=== PATIENT | male | born 1955 | race Caucasian/White ===

== ENCOUNTER 2022-03-24 13:09 | Inpatient (IN) | payer MEDICARE, OTHER ==
[~2022-03-24] VITALS: Ht 180.3 cm; Wt 169.6 kg
--- NOTE | 2022-03-24 13:57 | NUR ---
BIBCARETAKER C/O ROSSY LOWER LEG EDEMA, L>R, POSS DVT PER STAFF. THE PATIENT RATES PAIN 5/10. IN ROOM AIR AND DENIES SOB. RESPIRATION REGULAR AND UNLABORED. THE PATIENT IS ATTACHED TO THE MONITOR. WILL CONTINUE TO MONITOR THE PATIENT.
[2022-03-24] MEDS ORDERED: BENA40TA8 PO (14:15)
[2022-03-24] MEDS ORDERED: ONDA4TAB11 SL (14:15)
[2022-03-24] MEDS ORDERED: FURO-144 PO (14:15)
[2022-03-24] MEDS ORDERED: OMEP20CA15 PO (14:15)
[2022-03-24] MEDS ORDERED: ZOLP5TAB8 PO (14:15)
[2022-03-24] MEDS ORDERED: ACET650S11 RC (14:15)
[2022-03-24] MEDS ORDERED: MORP100S3 SL (14:15)
[2022-03-24] MEDS ORDERED: ATOR10TA PO (14:15)
[2022-03-24] MEDS ORDERED: BISA10SU11 RC (14:15)
[2022-03-24] MEDS ORDERED: QUET25TA PO (14:15)
[2022-03-24] MEDS ORDERED: POTA8TAB3 PO (14:15)
[2022-03-24] MEDS ORDERED: GABA-532 PO (14:15)
[2022-03-24] MEDS ORDERED: ATRO2DRO4 SL (14:15)
[2022-03-24] MEDS ORDERED: AMLO-212 PO (14:15)
[2022-03-24] MEDS ORDERED: METO5TAB7 PO (14:15)
[2022-03-24] MEDS ORDERED: BUME2TAB7 PO (14:15)
[2022-03-24] MEDS ORDERED: ASPI-1169 PO (14:15)
[2022-03-24] MEDS ORDERED: DOCU-141 PO (14:15)
[2022-03-24] MEDS ORDERED: BUDE10.2 IH (14:15)
[2022-03-24] MEDS ORDERED: FERR325T23 PO (14:15)
[2022-03-24] MEDS ORDERED: ALBU2.5V38 IH (14:15)
[2022-03-24] MEDS ORDERED: ALBU18HF2 IH (14:15)
[2022-03-24] MEDS ORDERED: CALC500T52 PO (14:15)
[2022-03-24] MEDS ORDERED: LORA2ORA5 SL (14:15)
[2022-03-24] MEDS ORDERED: MELA5TAB PO (14:15)
[2022-03-24] MEDS ORDERED: LEVE500T20 PO (14:15)
[2022-03-24] MEDS ORDERED: CHOL100043 PO (14:15)
[2022-03-24] MEDS ORDERED: IPRA3AMP23 IH (14:15)
[2022-03-24] MEDS ORDERED: PRED20TA PO (14:15)
--- NOTE | 2022-03-24 14:30 | NUR ---
SEEN BY DR. FOX AT BEDSIDE. ATTACHED TO PULSE OXIMETER. O2 SAT 88-91% IN ROOM AIR, TARI. AT THIS TIME
[2022-03-24] MEDS ORDERED: BUMETANIDE INJ 0.25 MG/ML VIAL ONE (14:40)
--- NOTE | 2022-03-24 14:47 | NUR ---
RAPID COVID SWAB DONE AND SENT TO LAB
--- NOTE | 2022-03-24 14:50 | NUR ---
IV ESTABLISHED R HAND 20G. LABS DRAWN AND COLLECTED AT BEDSIDE.
[2022-03-24] MEDS ORDERED: BUMETANIDE INJ 4 MG in IV NS 0.9% 50 ML IV ONE (15:00)
[2022-03-24] MEDS ORDERED: BUMETANIDE INJ 0.25 MG/ML VIAL IV ONE (15:00)
[2022-03-24 15:04] LABS: BASOPHILS % (AUTO) 0.5 % (0.0-2.0); EOSINOPHILS % (AUTO) 4.5 % (0.0-6.0); HEMATOCRIT 34 % (39-51); LYMPHOCYTES # (AUTO) 0.6 K/uL (0.8-4.8); LYMPHOCYTES % (AUTO) 6.9 % (20.0-44.0); MEAN CORPUSCULAR HGB CONC 32 g/dl (31.0-36.0); MEAN CORPUSCULAR VOLUME 94 fL (80-96); MONOCYTES # (AUTO) 0.5 K/uL (0.1-1.30); MONOCYTES % (AUTO) 6.5 % (2.0-12.0); NEUTROPHILS # (AUTO) 6.8 K/uL (1.8-8.9); NEUTROPHILS % (AUTO) 81.6 % (43.0-81.0); PLATELET COUNT (AUTO) 225 K/uL (150-450); RED BLOOD CELL COUNT(AUTO) 3.61 MIL/uL (4.5-6.0); WHITE BLOOD COUNT (AUTO) 8.3 K/uL (4.3-11.0)
--- NOTE | 2022-03-24 15:08 | NUR ---
DR. BAIRES CALLED AND NOTIFIED THAT HE WOULD LIKE TO ADMIT THE PT
[2022-03-24 15:17] LABS: CALCIUM, SERUM 8.8 mg/dL (8.5-10.1); CARBON DIOXIDE 31 mmol/L (21-32); CHLORIDE 102 mmol/L (98-107); GLUCOSE 177 mg/dL (74-106); POTASSIUM 5.3 mmol/L (3.5-5.1); SODIUM SERUM 138 mmol/L (136-145); UREA NITROGEN, BLOOD 53 mg/dL (7-18)
[2022-03-24 15:33] LABS: ALANINE AMINOTRANSFERASE 28 U/L (12-78); ALBUMIN 3.5 g/dL (3.4-5.0); ALKALINE PHOSPHATASE 71 U/L (46-116); ASPARTATE AMINOTRANSFERASE 17 U/L (15-37); BILIRUBIN,DIRECT 0.1 mg/dL (0.0-0.2); BILIRUBIN,TOTAL 0.3 mg/dL (0.2-1.0); TOTAL PROTEIN, SERUM 7.4 g/dL (6.4-8.2)
--- NOTE | 2022-03-24 17:11 | NUR ---
Angi chinchilla in [facility] - 03/24/22 at 1730 by LAQUIAT morenita cantu
--- NOTE | 2022-03-24 17:45 | NUR ---
PT PRESENTED TO DR. WORTHY
--- NOTE | 2022-03-24 19:41 | NUR ---
ROOM 325-2
--- NOTE | 2022-03-24 19:54 | NUR ---
REPORT GIVEN TO NURSE CARTER FOR VIC
[2022-03-24 20:00] VITALS: BP 82/61
--- NOTE | 2022-03-24 20:09 | NUR ---
TRANSFERRED TO [facility] FLOOR Addendum: 03/24/22 at 2050 by THO UNDER ACLS
[2022-03-24] MEDS ORDERED: ACETAMINOPHEN 325 MG TABLET PO PRN (21:00)
[2022-03-24] MEDS ORDERED: BISACODYL SUPP (10 MG) 10 MG/SUPP.RECT SUPP.RECT RC PRN (21:30)
[2022-03-24] MEDS ORDERED: ACETAMINOPHEN 650 MG/SUPP.RECT RC PRN (21:30)
[2022-03-24] MEDS ORDERED: Medication Not On Formulary EA (Ipratropium/Albuterol Sulfate (Duoneb 2.5-0.5 Mg/3 Ml So IH PRN (21:30)
[2022-03-24] MEDS ORDERED: ALBUTEROL SULFATE 8 GM HFA.AER.AD IH PRN (21:30)
[2022-03-24] MEDS ORDERED: ONDANSETRON HCL/PF 4 MG/2 ML VIAL IV PRN (22:00)
[2022-03-24] MEDS ORDERED: IPRATROPIUM NEB FS 0.5 MG/2.5 ML AMPUL.NEB IH PRN (22:00)
[2022-03-24] MEDS ORDERED: ALBUTEROL FS 2.5 MG/0.5 ML VIAL.NEB NEB PRN (22:00)
[2022-03-24] MEDS: MELATONIN 3 MG TABLET PO SCH ×2 (22:00→22:25)
--- NOTE | 2022-03-24 22:00 | NUR ---
MS RN NOTES PT A/OX4 ABLE TO MAKE NEEDS KNOW. IN NO PAIN AT THIS TIME. PT HAS IV ACCESS ON THE RIGHT HAND 20 G S/L .PT NOTED WITH VARIOUS WOUNDS BLE EDEMA AND REDNESS NOTED WITH WEEPING ON THE RIGHT LEG. PER PT HE HAS A HX OF BLE CELLULITIS AND HAD BEEN RECEIVING TREATMENT FOR IT. PT NOTED WITH PITTING EDEMA +2 ON BILATERAL LEGS. PT ALSO HAS DISCOLORATION OB BILATERAL ARMS WITH A RIGHT ELBOW SKIN TEAR. SCROTAL REDNESS ALSO NOTED. PER PT AT HIS ASSISTED LIVING HE AMBULATED VIA WHEEL CHAIR WITH THE HELP OF A TRAPEZE BAR TO GET UP. WHEN HAVING PT TURN TO CHECK HIS BACK FOR WOUNDS NOTED PT WAS HAVING SOME SOB WITH EXERTION PLACED PT ON 2L OF 02 VIA NASAL CANNULA.TOLERATING WELL. PT ORIENTED TO ROOM A ND UNIT BILATERAL SIDE RAILS UP.CALL LIGHT WITHIN REACH TABLE WITHIN REACH. ALL NEEDS META THIS ITME. WILL CONTINUE TO MONITOR
[2022-03-24] MEDS: ATORVASTATIN 10 MG TABLET PO SCH (22:24)
[2022-03-24 23:34] VITALS: BP 86/58
[2022-03-25] MEDS: HYDROCODONE/APAP 5/325MG TABLET PO PRN ×2 (00:57→08:09)
[2022-03-25] MEDS: ALBUTEROL FS 2.5 MG/0.5 ML VIAL.NEB NEB SCH ×4 (01:59→20:16)
[2022-03-25 06:42] LABS: BASOPHILS % (AUTO) 0.6 % (0.0-2.0); EOSINOPHILS % (AUTO) 5.7 % (0.0-6.0); HEMATOCRIT 32 % (39-51); HEMOGLOBIN 10.6 g/dL (13.5-17.5); LYMPHOCYTES # (AUTO) 0.9 K/uL (0.8-4.8); LYMPHOCYTES % (AUTO) 14.1 % (20.0-44.0); MEAN CORPUSCULAR HGB CONC 34 g/dl (31.0-36.0); MEAN CORPUSCULAR VOLUME 92 fL (80-96); MONOCYTES # (AUTO) 0.6 K/uL (0.1-1.30); MONOCYTES % (AUTO) 10.1 % (2.0-12.0); NEUTROPHILS # (AUTO) 4.3 K/uL (1.8-8.9); NEUTROPHILS % (AUTO) 69.5 % (43.0-81.0); PLATELET COUNT (AUTO) 205 K/uL (150-450); RED BLOOD CELL COUNT(AUTO) 3.42 MIL/uL (4.5-6.0); WHITE BLOOD COUNT (AUTO) 6.2 K/uL (4.3-11.0)
--- NOTE | 2022-03-25 06:52 | NUR ---
MS RN NOTES PT A/OX4 ABLE TO MAKE NEEDS KNOW. IN NO PAIN AT THIS TIME. PT HAS IV ACCESS ON THE RIGHT HAND 20 G S/L .PT NOTED WITH VARIOUS WOUNDS BLE EDEMA AND REDNESS NOTED WITH WEEPING ON THE RIGHT LEG. PT ON 2L OF 02 VIA NASAL CANNULA.TOLERATING WELL. BILATERAL SIDE RAILS UP.CALL LIGHT WITHIN REACH TABLE WITHIN REACH. ALL NEEDS MET AT THIS TIME. WILL ENDORSE CARE TO DAY SHIFT NURSE FOR VIC
[2022-03-25 06:53] LABS: ALBUMIN 3.3 g/dL (3.4-5.0); BILIRUBIN,TOTAL 0.3 mg/dL (0.2-1.0); CALCIUM, SERUM 8.8 mg/dL (8.5-10.1); CREATININE 1.8 mg/dL (0.6-1.3); POTASSIUM 4.5 mmol/L (3.5-5.1)
[2022-03-25 07:19] LABS: THYROID STIMULATING HORMONE 2.144 uIU/mL (0.358-3.74)
--- NOTE | 2022-03-25 07:30 | NUR ---
RN NOTE PT RECEIVED IN BED. PT IS ON 2L OF O2 VIA NC SHOWING NO S/SX OF RESP DISTRESS. PT IS A/OX4 ABLE TO VERBALIZE NEEDS. BLE CELLULITIS NOTED. IV ACCESS NOTED ON RIGHT HAND #20, LINE FLUSHED, PATENT, AND INTACT WITH NO SIGNS OF INFILTRATION. ALL SAFETY MEASURES IMPLEMENTED. WILL CONTINUE TO MONITOR THROUGHOUT SHIFT.
[2022-03-25 08:00] VITALS: BP 114/50
[2022-03-25] MEDS: CHOLECALCIFEROL 1,000 UNIT TABLET (VIT D3) PO SCH (08:08)
[2022-03-25] MEDS: predniSONE 20 MG TABLET PO SCH (08:08)
[2022-03-25] MEDS: PANTOPRAZOLE 40 MG TABLET.DR PO SCH (08:08)
[2022-03-25] MEDS: GABAPENTIN 300 MG CAPSULE PO SCH ×3 (08:08→16:36)
[2022-03-25] MEDS: QUETIAPINE FUMARATE 25 MG TABLET PO SCH ×2 (08:08→16:36)
[2022-03-25] MEDS: DOCUSATE SODIUM 100 MG CAPSULE PO SCH ×2 (08:08→16:36)
[2022-03-25] MEDS: CALCIUM CARBONATE (1250) 500 MG TABLET PO SCH ×2 (08:08→16:36)
[2022-03-25] MEDS: ASPIRIN 81 MG TAB.CHEW PO SCH (08:09)
[2022-03-25] MEDS: BUMETANIDE INJ 0.25 MG/ML VIAL IV SCH ×2 (08:09→21:12)
[2022-03-25] MEDS: LEVETIRACETAM (250 MG) 250 MG TABLET PO SCH (08:10)
[2022-03-25] MEDS: BUDESONIDE RESPULE INH 0.5 MG/2 ML AMPUL.NEB NEB SCH ×2 (08:20→14:19)
[2022-03-25] MEDS ORDERED: CEFTRIAXONE 1 G in IV D5W 50 ML IV SCH (09:00)
[2022-03-25] MEDS ORDERED: Medication Not On Formulary EA (Budesonide/Formoterol Fumarate (Symbicort 160-4.5 Mcg In IH SCH (09:00)
[2022-03-25] MEDS ORDERED: AMLODIPINE BESYLATE 5 MG TABLET PO SCH (09:00)
[2022-03-25] MEDS: CEFTRIAXONE 2 G in IV D5W 100 ML IV SCH (09:56)
[2022-03-25] MEDS: HEPARIN SODIUM, PORCINE 5000 UNITS/1 ML VIAL SQ SCH ×2 (09:58→21:18)
--- NOTE | 2022-03-25 10:16 | NUR ---
WOUND CARE CONSULT: PT HAVING PROCEDURE AT THIS TIME. WILL SEE PT FOR SKIN ASSESSMENT PT CONDITION PERMITS. DISCUSSED SKIN PROTECTION WITH NURSING STAFF.
--- NOTE | 2022-03-25 10:47 | NUR ---
WOUND CARE CONSULT: PT PRESENTS WITH REDNESS TO SCROTUM AND REDNESS TO BILATERAL LOWER LEGS WITH SWELLING AND WEEPING TO LEFT LOWER LEG, PRESENT ON ADMISSION. RECOMMEND SURGICAL /DPM CONSULT. DR DUMONT NOTIFIED. DISCUSSED SKIN PROTECTION WITH NURSING STAFF. PT IS ON GIRARD ISOFLEX LOW AIRLOSS BED. MD IN AGREEMENT WITH PLAN OF CARE.
[2022-03-25] MEDS: Z GUARD REMEDY 4 OZ OINT TP SCH (11:17)
[2022-03-25] MEDS: VANCOMYCIN 1.5 GM in IV D5W 500ml IV SCH (11:18)
[2022-03-25 16:00] VITALS: BP 95/61
[2022-03-25] MEDS: CLOTRIMAZOLE 1% 15 GM TUBE TP SCH (16:37)
--- NOTE | 2022-03-25 18:43 | NUR ---
RN NOTE NO CHANGES IN PT CONDITION DURING SHIFT. PT IS ON 2L OF O2 VIA NC SHOWING NO S/SX OF RESP DISTRESS. PT IS A/OX4 ABLE TO VERBALIZE NEEDS. BLE CELLULITIS NOTED. IV ACCESS NOTED ON RIGHT HAND #20, LINE FLUSHED, PATENT, AND INTACT WITH NO SIGNS OF INFILTRATION. ALL SAFETY MEASURES IMPLEMENTED. WILL ENDORSE TO EVENING RN FOR VIC.
--- NOTE | 2022-03-25 19:30 | NUR ---
MS RN OPENING NOTE RECEIVED PT IN BED, AWAKE. A/O X 4. ABLE TO MAKE NEEDS KNOWN. CURRENTLY ON 2L OF O2 VIA NC, TOLERATING WELL, SHOWING NO S/SX OF ACUTE RESP DISTRESS AT THIS TIME. IV ACCESS NOTED ON RIGHT HAND #20G, FLUSHES WELL. PATENT AND INTACT WITH NO SIGNS OF INFILTRATION NOTED. BLE CELLULITIS NOTED. ALL SAFETY MEASURES IN PLACE: BED LOCKED IN LOW POSITION. CALL LIGHT WITHIN REACH. WILL CONTINUE TO MONITOR THROUGHOUT THE SHIFT.
[2022-03-25 20:00] VITALS: BP 120/70
[2022-03-25] MEDS: ATORVASTATIN 10 MG TABLET PO SCH (21:10)
--- NOTE | 2022-03-25 23:10 | NUR ---
RN NOTE PT WOKE UP FROM HIS NAP, HELPED IN TURNING AND REPOSITIONING. KEPT PT CLEAN AND DRY. WILL KEEP MONITORING.
[2022-03-26] MEDS: ALBUTEROL FS 2.5 MG/0.5 ML VIAL.NEB NEB SCH ×4 (01:48→20:08)
[2022-03-26 04:00] VITALS: BP 122/56
--- NOTE | 2022-03-26 06:15 | NUR ---
RN NOTE WOUND CARE DONE. DRESSINGS CHANGED. ALL DUE MEDS GIVEN ORDERED. NO SIGNIFICANT CHANGES THROUGHOUT THE NIGHT. WILL ENDORSE TO AM SHIFT NURSE FOR VIC.
[2022-03-26 06:54] LABS: BASOPHILS # (AUTO) 0.1 K/uL (0.0-0.2); BASOPHILS % (AUTO) 0.9 % (0.0-2.0); EOSINOPHILS % (AUTO) 6.7 % (0.0-6.0); HEMATOCRIT 32 % (39-51); HEMOGLOBIN 10.8 g/dL (13.5-17.5); LYMPHOCYTES # (AUTO) 0.9 K/uL (0.8-4.8); LYMPHOCYTES % (AUTO) 16.3 % (20.0-44.0); MEAN CORPUSCULAR HGB CONC 33 g/dl (31.0-36.0); MEAN CORPUSCULAR VOLUME 93 fL (80-96); MONOCYTES # (AUTO) 0.6 K/uL (0.1-1.30); MONOCYTES % (AUTO) 10.5 % (2.0-12.0); NEUTROPHILS # (AUTO) 3.7 K/uL (1.8-8.9); NEUTROPHILS % (AUTO) 65.6 % (43.0-81.0); PLATELET COUNT (AUTO) 202 K/uL (150-450); RED BLOOD CELL COUNT(AUTO) 3.49 MIL/uL (4.5-6.0); WHITE BLOOD COUNT (AUTO) 5.6 K/uL (4.3-11.0)
[2022-03-26 07:04] LABS: ALBUMIN 3.3 g/dL (3.4-5.0); BILIRUBIN,TOTAL 0.3 mg/dL (0.2-1.0); CREATININE 1.4 mg/dL (0.6-1.3); POTASSIUM 4.2 mmol/L (3.5-5.1); TOTAL PROTEIN, SERUM 7.2 g/dL (6.4-8.2)
--- NOTE | 2022-03-26 07:30 | NUR ---
MS RN OPENING NOTES: RECEIVED PATIENT AWAKE, NO SOB OR CARDIAC DISTRESS NOTED, AFEBRILE AND ON 02 INHALATION @2LPM VIA NASAL CANNULA AND TOLERATING WELL. DENIES PAIN AT THIS TIME. R HAND G 20 IV ACCESS NOTED. SAFETY PRECAUTIONS MAINTAINED: BED LOCKED AND IN LOWEST POSITION, SIDERAILS UP X 2, CALL LIGHT IN EASY REACH FOR HELP. WILL MONITOR. KEPT RESTED AND COMFORTABLE.
[2022-03-26] MEDS: PANTOPRAZOLE 40 MG TABLET.DR PO SCH (07:33)
[2022-03-26 08:00] VITALS: BP 119/64
--- NOTE | 2022-03-26 08:00 | NUR ---
RN NOTES: CURRENT IV ACCESS ON R HAND IS LEAKING, REMOVED.
[2022-03-26] MEDS: BUDESONIDE RESPULE INH 0.5 MG/2 ML AMPUL.NEB NEB SCH ×2 (08:43→14:11)
[2022-03-26] MEDS: CALCIUM CARBONATE (1250) 500 MG TABLET PO SCH ×2 (09:02→17:07)
[2022-03-26] MEDS: BUMETANIDE INJ 0.25 MG/ML VIAL IV SCH (09:02)
[2022-03-26] MEDS: predniSONE 20 MG TABLET PO SCH (09:02)
[2022-03-26] MEDS: QUETIAPINE FUMARATE 25 MG TABLET PO SCH ×2 (09:02→17:06)
[2022-03-26] MEDS: ASPIRIN 81 MG TAB.CHEW PO SCH (09:02)
[2022-03-26] MEDS: LEVETIRACETAM (250 MG) 250 MG TABLET PO SCH (09:02)
[2022-03-26] MEDS: GABAPENTIN 300 MG CAPSULE PO SCH ×3 (09:02→17:06)
[2022-03-26] MEDS: CHOLECALCIFEROL 1,000 UNIT TABLET (VIT D3) PO SCH (09:02)
[2022-03-26] MEDS: DOCUSATE SODIUM 100 MG CAPSULE PO SCH ×2 (09:02→17:07)
[2022-03-26] MEDS: CLOTRIMAZOLE 1% 15 GM TUBE TP SCH ×2 (09:03→17:14)
[2022-03-26] MEDS: HEPARIN SODIUM, PORCINE 5000 UNITS/1 ML VIAL SQ SCH ×2 (09:09→21:08)
[2022-03-26] MEDS: Z GUARD REMEDY 4 OZ OINT TP PRN ×2 (09:10→10:21)
--- NOTE | 2022-03-26 09:20 | NUR ---
RN NOTES: RE-INSERTED IV ACCESS ON RIGHT HAND GAUGE 22, PATENT AND INTACT.
[2022-03-26] MEDS ORDERED: BUMETANIDE INJ 8 MG in IV NS 0.9% 48 ML IV ONE (10:00)
[2022-03-26] MEDS: CEFTRIAXONE 2 G in IV D5W 100 ML IV SCH (10:09)
[2022-03-26] MEDS: Z GUARD REMEDY 4 OZ OINT TP SCH (10:23)
[2022-03-26] MEDS: VANCOMYCIN 1.5 GM in IV D5W 500ml IV SCH (10:42)
[2022-03-26 12:00] VITALS: BP 119/64
[2022-03-26] MEDS ORDERED: MORPHINE SULFATE INJ 2 MG/ML DISP.SYRIN IV PRN (12:30)
[2022-03-26] MEDS: HYDROCODONE/APAP 5/325MG TABLET PO SCH ×2 (13:45→17:07)
[2022-03-26] MEDS: CYANOCOBALAMIN 1,000 MCG/ML VIAL IM SCH (14:13)
[2022-03-26 16:00] VITALS: BP 122/57
[2022-03-26 17:07] LABS: BILIRUBIN,URINE NEGATIVE (NEGATIVE); COLOR,URINE YELLOW (YELLOW); LEUKOCYTE ESTERASE ,URINE NEGATIVE (NEGATIVE); NITRITE, URINE NEGATIVE (NEGATIVE); PROTEIN,URINE NEGATIVE (NEGATIVE); UGLUCOSE NEGATIVE (NEGATIVE); UROBILINOGEN,URINE 0.2 EU/dL (0.2)
[2022-03-26 17:53] LABS: EOSINOPHIL,URINE None Seen
--- NOTE | 2022-03-26 18:47 | NUR ---
MS RN CLOSING NOTE: PATIENT AWAKE, NO SOB OR CARDIAC DISTRESS NOTED, AFEBRILE AND ON 02 INHALATION @2LPM VIA NASAL CANNULA AND TOLERATING WELL. DENIES PAIN AT THIS TIME. R HAND G 22 IV ACCESS NOTED PATENT AND INTACT AND SALINE LOCKED. SAFETY PRECAUTIONS MAINTAINED: BED LOCKED AND IN LOWEST POSITION, SIDERAILS UP X 2, CALL LIGHT IN EASY REACH FOR HELP. WILL MONITOR. KEPT RESTED AND COMFORTABLE. ENDORSED TO SPECIALTY TRIMMER FOR VIC.
--- NOTE | 2022-03-26 19:23 | NUR ---
RN OPENING NOTES RECEIVED PT IN BED, AWAKE. AOx4, ABLE TO MAKE NEEDS KNOWN. ON NC 2LPM AND TOLERATING WELL. NO SOB NOTED. NO S/SX OF RESPIRATORY DISTRESS NOTED. IV ACCESS IN R HAND #22G. IV INTACT, PATENT, AND FLUSHING WELL. SAFETY PRECAUTIONS IN PLACE: BED IN LOWEST, LOCKED POSITION, SIDERAILS UPx2, AND BRAKES ON. TABLE AND CALL LIGHT WITHIN REACH. WILL CONTINUE TO MONITOR.
[2022-03-26 20:00] VITALS: BP_SYST 112; BP_SYST 126; BP_DIAS 60; BP_DIAS 66
[2022-03-26] MEDS: ATORVASTATIN 10 MG TABLET PO SCH (21:07)
[2022-03-26] MEDS: ZOLPIDEM TARTRATE 5 MG TABLET PO PRN (21:07)
[2022-03-26 22:09] LABS: CREATININE, URINE 43.8 MG/DL (30.0-125.0); URINE TOTAL PROTEIN 10.8 mg/dL (0-11.9)
[2022-03-27] MEDS: ALBUTEROL FS 2.5 MG/0.5 ML VIAL.NEB NEB SCH ×4 (01:07→20:07)
[2022-03-27 06:48] LABS: BASOPHILS % (AUTO) 0.8 % (0.0-2.0); EOSINOPHILS % (AUTO) 4.7 % (0.0-6.0); HEMATOCRIT 33 % (39-51); HEMOGLOBIN 10.6 g/dL (13.5-17.5); LYMPHOCYTES # (AUTO) 0.9 K/uL (0.8-4.8); LYMPHOCYTES % (AUTO) 16.3 % (20.0-44.0); MEAN CORPUSCULAR HGB CONC 33 g/dl (31.0-36.0); MEAN CORPUSCULAR VOLUME 94 fL (80-96); MONOCYTES # (AUTO) 0.6 K/uL (0.1-1.30); MONOCYTES % (AUTO) 10.7 % (2.0-12.0); NEUTROPHILS # (AUTO) 3.7 K/uL (1.8-8.9); NEUTROPHILS % (AUTO) 67.5 % (43.0-81.0); PLATELET COUNT (AUTO) 184 K/uL (150-450); RED BLOOD CELL COUNT(AUTO) 3.47 MIL/uL (4.5-6.0); WHITE BLOOD COUNT (AUTO) 5.5 K/uL (4.3-11.0)
--- NOTE | 2022-03-27 06:52 | NUR ---
RN CLOSING NOTES PT IN BED, AWAKE. AOx4, ABLE TO MAKE NEEDS KNOWN. ON NC 2LPM AND TOLERATING WELL. NO SOB NOTED. NO S/SX OF RESPIRATORY DISTRESS NOTED. IV ACCESS IN R HAND #22G. IV INTACT, PATENT, AND FLUSHING WELL. ALL ORDERS CARRIED OUT. ALL NEEDS MET. PT KEPT CLEAN AND DRY. SAFETY PRECAUTIONS IN PLACE: BED IN LOWEST, LOCKED POSITION, SIDERAILS UPx2, AND BRAKES ON. TABLE AND CALL LIGHT WITHIN REACH. WILL ENDORSE TO ONCOMING SHIFT FOR VIC.
[2022-03-27 07:40] LABS: ALBUMIN 3.1 g/dL (3.4-5.0); BILIRUBIN,TOTAL 0.3 mg/dL (0.2-1.0); CALCIUM, SERUM 8.8 mg/dL (8.5-10.1); CREATININE 1.3 mg/dL (0.6-1.3); MAGNESIUM 2.3 mg/dL (1.8-2.4); PHOSPHORUS 3.8 mg/dL (2.5-4.9); POTASSIUM 3.8 mmol/L (3.5-5.1); TOTAL PROTEIN, SERUM 7.1 g/dL (6.4-8.2)
[2022-03-27] MEDS: BUDESONIDE RESPULE INH 0.5 MG/2 ML AMPUL.NEB NEB SCH ×2 (07:58→14:25)
--- NOTE | 2022-03-27 07:59 | NUR ---
RN OPENING NOTE PATIENT RECEIVED IN BED, AO X 4, ABLE TO RESPONDS ALL STIMULI. IN NO ACUTE DISTRESS NOTED. RESPIRATORY EVEN AND UNLABORED ON OXYGEN AT 2Ls VIA NC. SKIN IS WARM TO TOUCH, KEEP CLEAN/DRY. KEPT ELEVATED HOB FOR ENSURE AIRWAY AND ASPIRATION PRECAUTION, ALSO LOWEST POSITION OF THE BED, S/R UP X 3, BED ALARM IS ON AT ALL THE TIMES. ALL SAFETY PRECAUTION APPLIED. CALL LIGHT WITHIN REACH, WILL CONTINUE TO MONITOR.
[2022-03-27 08:00] VITALS: BP 129/78
[2022-03-27] MEDS: LEVETIRACETAM (250 MG) 250 MG TABLET PO SCH (08:33)
[2022-03-27] MEDS: PANTOPRAZOLE 40 MG TABLET.DR PO SCH (08:33)
[2022-03-27] MEDS: CALCIUM CARBONATE (1250) 500 MG TABLET PO SCH ×2 (08:33→18:09)
[2022-03-27] MEDS: CEFTRIAXONE 2 G in IV D5W 100 ML IV SCH (08:33)
[2022-03-27] MEDS: DOCUSATE SODIUM 100 MG CAPSULE PO SCH ×2 (08:33→18:08)
[2022-03-27] MEDS: QUETIAPINE FUMARATE 25 MG TABLET PO SCH ×2 (08:34→18:09)
[2022-03-27] MEDS: CHOLECALCIFEROL 1,000 UNIT TABLET (VIT D3) PO SCH (08:34)
[2022-03-27] MEDS: ASPIRIN 81 MG TAB.CHEW PO SCH (08:34)
[2022-03-27] MEDS: GABAPENTIN 300 MG CAPSULE PO SCH ×3 (08:34→18:09)
[2022-03-27] MEDS: predniSONE 20 MG TABLET PO SCH (08:34)
[2022-03-27] MEDS: HEPARIN SODIUM, PORCINE 5000 UNITS/1 ML VIAL SQ SCH ×2 (08:35→21:18)
[2022-03-27] MEDS: CLOTRIMAZOLE 1% 15 GM TUBE TP SCH ×2 (08:36→18:11)
[2022-03-27] MEDS: Z GUARD REMEDY 4 OZ OINT TP SCH (08:37)
[2022-03-27] MEDS: HYDROCODONE/APAP 5/325MG TABLET PO SCH ×3 (08:39→18:09)
[2022-03-27] MEDS: CYANOCOBALAMIN 1,000 MCG/ML VIAL IM SCH (08:58)
[2022-03-27] MEDS: POTASSIUM CHLORIDE 20 MEQ TAB.PRT.SR PO SCH ×2 (09:51→11:43)
[2022-03-27] MEDS: CYANOCOBALAMIN 500 MCG TABLET PO SCH (09:57)
[2022-03-27] MEDS ORDERED: BUMETANIDE INJ 8 MG in IV NS 0.9% 48 ML IV ONE (10:00)
--- NOTE | 2022-03-27 10:06 | NUR ---
PATIENT NOTED INFILTRATE ON RIGHT HAND IV LINE, NEW ORDER INSERT MIDLINE BY DR. WORTHY. NOTED AND CARRY OUT.
[2022-03-27] MEDS: VANCOMYCIN 1.5 GM in IV D5W 500ml IV SCH (11:43)
[2022-03-27 16:00] VITALS: BP 135/79
--- NOTE | 2022-03-27 18:49 | NUR ---
RN CLOSE NOTE PATIENT IN BED AND RESTING, AO X 4. IN NO ACUTE DISTRESS OBSERVED. SKIN IS WARM TO TOUCH, KEEP CLEAN/DRY. DRESSING CHANGED ON BLE. RESPIRATORY EVEN AND UNLABORED ON OXYGEN AT 2Ls VIA NC. ELEVATED HOB FOR ASPIRATION PRECAUTION AND ENSURE AIRWAY. ALSO LOWEST POSITION OF THE BED FOR SAFETY. BED ALARM IS ON AT ALL THE TIMES. CALL LIGHT WITHIN REACH, WILL CONTINUE TO MONITOR FOR SAFETY.
--- NOTE | 2022-03-27 19:30 | NUR ---
MS RN OPENING NOTE PATIENT AWAKE IN BED, ALERT/ORIENTED X 4, PT ABLE TO MAKE NEEDS KNOWN. PATIENT STABLE ON 2 LPM OF OXYGEN VIA NASAL CANNULA, NO S/S OF DISTRESS OR SOB NOTED, BREATHING EVEN AND UNLABORED. SINDI MIDLINE INTACT AND FLUSHING WELL, SALINE LOCKED. SAFETY MEASURES IN PLCE: CALL LIGHT WITHIN REACH, SIDE RAILS UP X 3, BED LOCKED IN LOWEST POSITION, BED ALARM ON. WILL CONTINUE TO MONITOR PATIENT
[2022-03-27 20:00] VITALS: BP 148/83
[2022-03-27] MEDS: ATORVASTATIN 10 MG TABLET PO SCH (21:12)
[2022-03-27] MEDS: ZOLPIDEM TARTRATE 5 MG TABLET PO PRN (21:22)
--- NOTE | 2022-03-27 22:00 | NUR ---
MS RN OPENING NOTE RECEIVED PATIENT IN BED; AWAKE, ALERT AND ORIENTED X4. BREATHING IS EVEN AND NONLABORED. IN NO ACUTE DISTRESS NOTED. WITH OXYGEN INHALATION ON @ 2LPM VIA NASAL CANNULA. WITH IV ACCESS @ RIGHT UPPER ARM MIDLINE; INTACT. ABLE TO MAKE NEEDS KNOWN. SAFETY MEASURES IMPLEMENTED: HEAD OF BED ELEVATED; CALL LIGHT AND TABLE WITHIN REACH, SIDE RAILS UP X3, BED IN LOWEST LOCKED POSITION. WILL CONTINUE TO MONITOR.
--- NOTE | 2022-03-27 22:40 | NUR ---
MS RN NOTE GAVE REPORT TO KATHRYN DENNEY FOR TRANSFER OF CARE. PATIENT SLEEPING IN BED, ALERT/ORIENTED X 4, PT ABLE TO MAKE NEEDS KNOWN. NO S/S OF DISTRESS OR SOB NOTED, BREATHING EVEN AND UNLABORED, PATIENT ON 2 LPM OF OXYGEN VIA NC. MEDICATIONS GIVEN ORDERED, PT NEEDS MET. RIGHT ARM DRESSING CHANGED. SAFETY MEASURES IN PLACE: CALL LIGHT WITHIN REACH, SIDE RAILS UP X 3, BED LOCKED IN LOWEST POSITION, BED ALARM ON.
--- NOTE | 2022-03-28 00:15 | NUR ---
RN NOTE PATIENT FELL OFF FROM BED. PATIENT VERBALIZED HE WAS DREAMING. HEALTHCARE WORKERS HELPED IN PUTTING HIM BACK TO BED. NEURO AND SKIN CHECKS DONE. VITAL SIGNS CHECKED: BP-152/67, TEMP-97.9, AL-92, RR-20, O2 SAT-100%.SAFETY MEASURES IMPLEMENTED: SIDE RAILS UP X3. CALL LIGHT AND TABLE WITHIN REACH, BED IN LOWEST LOCKED POSITION. PATIENT STATES "I AM FINE. NO BODY PAINS." WILL CONTINUE TO MONITOR PATIENT.
[2022-03-28] MEDS: ALBUTEROL FS 2.5 MG/0.5 ML VIAL.NEB NEB SCH ×4 (01:30→19:30)
[2022-03-28 06:54] LABS: BASOPHILS % (AUTO) 0.6 % (0.0-2.0); EOSINOPHILS % (AUTO) 7.4 % (0.0-6.0); HEMATOCRIT 33 % (39-51); HEMOGLOBIN 10.9 g/dL (13.5-17.5); LYMPHOCYTES # (AUTO) 1.1 K/uL (0.8-4.8); LYMPHOCYTES % (AUTO) 15.2 % (20.0-44.0); MEAN CORPUSCULAR HGB CONC 33 g/dl (31.0-36.0); MEAN CORPUSCULAR VOLUME 93 fL (80-96); MONOCYTES # (AUTO) 0.8 K/uL (0.1-1.30); MONOCYTES % (AUTO) 10.7 % (2.0-12.0); NEUTROPHILS # (AUTO) 4.8 K/uL (1.8-8.9); NEUTROPHILS % (AUTO) 66.1 % (43.0-81.0); PLATELET COUNT (AUTO) 189 K/uL (150-450); RED BLOOD CELL COUNT(AUTO) 3.53 MIL/uL (4.5-6.0); WHITE BLOOD COUNT (AUTO) 7.2 K/uL (4.3-11.0)
--- NOTE | 2022-03-28 07:00 | NUR ---
MS RN CLOSING NOTE PATIENT IN BED; AWAKE, A/O X4. BREATHING EVENLY AND NONLABORED. IN NO ACUTE DISTRESS NOTED. WITH OXYGEN INHALATION ON @ 2LPM VIA NASAL CANNULA; TOLERATING WELL. WITH IV ACCESS @ RIGHT UPPER ARM MIDLINE; INTACT. NEEDS ATTENDED TO. SAFETY MEASURES IN PLACE. ENDORSED TO MORNING SHIFT FOR VIC.
[2022-03-28 07:16] LABS: ALBUMIN 3.3 g/dL (3.4-5.0); BILIRUBIN,TOTAL 0.3 mg/dL (0.2-1.0); CALCIUM, SERUM 9.1 mg/dL (8.5-10.1); CREATININE 1.4 mg/dL (0.6-1.3); MAGNESIUM 2.3 mg/dL (1.8-2.4); PHOSPHORUS 4.3 mg/dL (2.5-4.9); POTASSIUM 3.7 mmol/L (3.5-5.1); TOTAL PROTEIN, SERUM 7.5 g/dL (6.4-8.2)
--- NOTE | 2022-03-28 08:05 | NUR ---
RT Patient refused breathing tx. Expressed not to wake up him for next breathing tx. Addendum: 03/28/22 at 2031 by SANDRO MCARTHUR RT Correction: TIME 2004 not [id number]. Patient refused breathing tx. Expressed not to wake up him for next breathing tx.
[2022-03-28] MEDS: BUDESONIDE RESPULE INH 0.5 MG/2 ML AMPUL.NEB NEB SCH ×2 (08:14→15:00)
--- NOTE | 2022-03-28 08:18 | NUR ---
MS RN OPENING NOTES RECEIVED PATIENT IN BED; AWAKE, A/O X 4 NO SOB OR DISTRESS NOTED . WITH OXYGEN INHALATION ON @ 2LPM VIA NASAL CANNULA. WITH IV ACCESS @ RIGHT UPPER ARM MIDLINE; INTACT. ABLE TO MAKE NEEDS KNOWN. SAFETY MEASURES IMPLEMENTED: HEAD OF BED ELEVATED; CALL LIGHT AND TABLE WITHIN REACH, SIDE RAILS UP X3, BED IN LOWEST LOCKED POSITION. WILL CONTINUE TO MONITOR.
[2022-03-28] MEDS: predniSONE 20 MG TABLET PO SCH (08:53)
[2022-03-28] MEDS: HEPARIN SODIUM, PORCINE 5000 UNITS/1 ML VIAL SQ SCH ×2 (08:54→21:09)
[2022-03-28] MEDS: ASPIRIN 81 MG TAB.CHEW PO SCH (08:56)
[2022-03-28] MEDS: CHOLECALCIFEROL 1,000 UNIT TABLET (VIT D3) PO SCH (08:56)
[2022-03-28] MEDS: DOCUSATE SODIUM 100 MG CAPSULE PO SCH ×2 (08:56→17:29)
[2022-03-28] MEDS: CALCIUM CARBONATE (1250) 500 MG TABLET PO SCH (08:56)
[2022-03-28] MEDS: PANTOPRAZOLE 40 MG TABLET.DR PO SCH (08:56)
[2022-03-28] MEDS: HYDROCODONE/APAP 5/325MG TABLET PO SCH ×3 (08:56→17:30)
[2022-03-28] MEDS: GABAPENTIN 300 MG CAPSULE PO SCH ×3 (08:57→17:29)
[2022-03-28] MEDS: CYANOCOBALAMIN 500 MCG TABLET PO SCH (08:57)
[2022-03-28] MEDS: QUETIAPINE FUMARATE 25 MG TABLET PO SCH ×2 (08:57→17:29)
[2022-03-28] MEDS: CEFTRIAXONE 2 G in IV D5W 100 ML IV SCH (08:59)
[2022-03-28] MEDS: Z GUARD REMEDY 4 OZ OINT TP SCH (09:00)
[2022-03-28] MEDS: CLOTRIMAZOLE 1% 15 GM TUBE TP SCH ×2 (09:00→17:39)
[2022-03-28] MEDS: LEVETIRACETAM (250 MG) 250 MG TABLET PO SCH (09:07)
[2022-03-28] MEDS: VANCOMYCIN 1.5 GM in IV D5W 500ml IV SCH (10:28)
--- NOTE | 2022-03-28 19:13 | NUR ---
MS RN CLOSING NOTE Patient in bed, resting. A/O x 4, able to make needs known. On O2 at 2 LPM, breathing evenly and unlabored. HOB elevated. IV access on SINDI midline SL, intact and patent. Due meds given. All needs attended to. Wound care done, as ordered. Photos of wounds and skin issues taken and placed in chart. Safety precautions maintained: bed in low, locked position; siderails up x 2; call light within reach. Will endorse to rn shift mgr nurse for VIC.
--- NOTE | 2022-03-28 19:20 | NUR ---
RN opening notes Received Pt laying in bed comfortably. Pt is alert and orienetdX4. On 2 L NC. No SOB. No S/S of distress noted. SINDI midline is clean, intact and SL. Safety precautions is maintained. Bed at low position, brakes locked, side rails upX3, hob elevated, bed alarm is on and call light is within reach. Will continue to monitor.
[2022-03-28 20:00] VITALS: BP 130/73
[2022-03-28] MEDS: ATORVASTATIN 10 MG TABLET PO SCH (21:07)
[2022-03-28] MEDS: ZOLPIDEM TARTRATE 5 MG TABLET PO PRN (21:17)
--- NOTE | 2022-03-28 21:23 | NUR ---
RN notes Pt is having insomnia and requesting ambien. administered ambien 5 mg/po/prn as ordered for sleeping per Pt's request. safety precautions is maintained. will continue to monitor.
--- NOTE | 2022-03-28 21:58 | NUR ---
RN notes Pt stated "I don't want breathing treatment at 0100 o'clock. please tell respiratory therapy. I want to sleep." Explained risks and benefits. Pt keep refusing. O2 sat is 93% on 2 L NC. No SOB. No S/s of distress noted. Called Rt Beatriz regarding Pt refusing breathing tx. will continue to monitor.
[2022-03-29] MEDS: ALBUTEROL FS 2.5 MG/0.5 ML VIAL.NEB NEB SCH ×3 (01:30→13:57)
[2022-03-29] MEDS: HYDROCODONE/APAP 5/325MG TABLET PO PRN (03:02)
--- NOTE | 2022-03-29 03:05 | NUR ---
RN notes Pt is complaining of pain on L and R hip and requesting pain med. administered norco 5/po/1 tab/prn as ordered for pain. safety precautions is maintained. will continue to monitor.
--- NOTE | 2022-03-29 06:46 | NUR ---
RN closing notes Pt is resting in bed comfortbaly. Pt is alert and orientedX4. On 2 L NC. No SOB. No S/S of distress noted. SINDI midline is clean, intact and SL. Routine meds were given as ordered. Kept Pt clean, dry and comfortable. Pt refused BLE wound care. Explained risks and benefits. Safety precautions is maintained. Bed at low position, brakes locked, side rails upX3, hob elevated, bed alarm is on and call light is within reach. Will endorse to am nurse for VIC.
[2022-03-29 07:17] LABS: CALCIUM, SERUM 9.1 mg/dL (8.5-10.1); CREATININE 1.3 mg/dL (0.6-1.3); POTASSIUM 3.7 mmol/L (3.5-5.1)
[2022-03-29 08:00] VITALS: BP 136/78
[2022-03-29] MEDS: BUDESONIDE RESPULE INH 0.5 MG/2 ML AMPUL.NEB NEB SCH ×2 (08:07→13:57)
[2022-03-29] MEDS: DOCUSATE SODIUM 100 MG CAPSULE PO SCH (08:17)
[2022-03-29] MEDS: HYDROCODONE/APAP 5/325MG TABLET PO SCH ×2 (08:17→12:08)
[2022-03-29] MEDS: QUETIAPINE FUMARATE 25 MG TABLET PO SCH (08:17)
[2022-03-29] MEDS: CHOLECALCIFEROL 1,000 UNIT TABLET (VIT D3) PO SCH (08:17)
[2022-03-29] MEDS: CYANOCOBALAMIN 500 MCG TABLET PO SCH (08:17)
[2022-03-29] MEDS: GABAPENTIN 300 MG CAPSULE PO SCH ×2 (08:17→12:08)
[2022-03-29] MEDS: ASPIRIN 81 MG TAB.CHEW PO SCH (08:17)
[2022-03-29] MEDS: predniSONE 20 MG TABLET PO SCH (08:17)
[2022-03-29] MEDS: LEVETIRACETAM (250 MG) 250 MG TABLET PO SCH (08:17)
[2022-03-29] MEDS: PANTOPRAZOLE 40 MG TABLET.DR PO SCH (08:17)
[2022-03-29] MEDS: CEFTRIAXONE 2 G in IV D5W 100 ML IV SCH (08:18)
[2022-03-29] MEDS: HEPARIN SODIUM, PORCINE 5000 UNITS/1 ML VIAL SQ SCH (08:26)
[2022-03-29] MEDS: Z GUARD REMEDY 4 OZ OINT TP SCH (08:31)
[2022-03-29] MEDS: CLOTRIMAZOLE 1% 15 GM TUBE TP SCH (08:31)
[2022-03-29] MEDS: VANCOMYCIN 1.5 GM in IV D5W 500ml IV SCH (10:07)
--- NOTE | 2022-03-29 10:55 | NUR ---
MS RN OPENING NOTE Patient in bed, awake. A/O x 4, able to make needs known. On O2 at 2 LPM, breathing evenly and unlabored. No SOB or s/s of distress noted. IV access on SINDI midline SL, intact and patent. Dressing on LLE is c/d/i. Safety precautions in place: bed in low, locked position; siderails up x 2; call light within reach. Will continue to monitor.
--- NOTE | 2022-03-29 16:23 | NUR ---
PARTS DESIGNER NOTES PATIENT IS WITH ORDER [facility] , PATIENT ALERT AND ORIENTED AND AWARE ABOUT THE DISCHARGE PLAN AND HE AGREED , ALL DISCHARGE INSTRUCTIONS WERE PROVIDED TO THE RESIDENT REGARDING MEDICATIONS , DIET AND SAFETY PRECAUTIONS . REPORT WAS CALLED TO RN [facility] [employer] [facility] AT [facility]. PATIENT WITH ORDER FOR RAPID COVID TEST BEFORE DISCHARGE AND WITH NEGATIVE RESULTS . PATIENT WAS PICK BY EMT AROUND 1500 AND REPORT WAS GIVEN TO THEM , V/S WAS CHECKED AND WITHIN NORMAL LIMIT , NO SOB OR ANY DISTRESS NOTED , WITH O2 VIA NC AT 2 L/MIN CONT. , MIDLINE WAS REMOVED AND NO BLEEDING NOTED , PATIENT LEFT AROUND 1545
== END 2022-03-29 17:00 | DRG 603 ==
LOC: ER 13:27 → MED 19:43
PROVIDERS: ADMIT Internal Medicine; ATTEND Internal Medicine
PROC: 05HD33Z Insertion of Infusion Device into Right Cephalic Vein, Percutaneous Approach (ICD-10-PCS; principal; 2022-03-27)
DX: L03.116 Cellulitis of left lower limb (principal); N17.9 Acute kidney failure, unspecified; I13.0 Hypertensive heart and chronic kidney disease with heart failure and stage 1 through stage 4 chronic kidney disease, or unspecified chronic kidney disease; I69.354 Hemiplegia and hemiparesis following cerebral infarction affecting left non-dominant side; Z68.43 Body mass index [BMI] 50.0-59.9, adult; I87.311 Chronic venous hypertension (idiopathic) with ulcer of right lower extremity; L97.829 Non-pressure chronic ulcer of other part of left lower leg with unspecified severity; I50.9 Heart failure, unspecified; N18.9 Chronic kidney disease, unspecified; E87.5 Hyperkalemia; I25.10 Atherosclerotic heart disease of native coronary artery without angina pectoris; Z20.822 Contact with and (suspected) exposure to COVID-19; J44.9 Chronic obstructive pulmonary disease, unspecified; G40.909 Epilepsy, unspecified, not intractable, without status epilepticus; Z79.51 Long term (current) use of inhaled steroids; E66.01 Morbid (severe) obesity due to excess calories; Z79.82 Long term (current) use of aspirin; Z79.899 Other long term (current) drug therapy; J06.9 Acute upper respiratory infection, unspecified; K29.70 Gastritis, unspecified, without bleeding; F29 Unspecified psychosis not due to a substance or known physiological condition; G47.33 Obstructive sleep apnea (adult) (pediatric); Z79.891 Long term (current) use of opiate analgesic; E11.51 Type 2 diabetes mellitus with diabetic peripheral angiopathy without gangrene; E11.65 Type 2 diabetes mellitus with hyperglycemia; E11.22 Type 2 diabetes mellitus with diabetic chronic kidney disease; G89.29 Other chronic pain; Z99.3 Dependence on wheelchair
CPT/HCPCS: 36410; 36415; 71045-TC; 76770-TC; 80048-TC; 80053-TC; 80061-TC; 80076-TC; 80202-TC; 82570-TC; 82607-TC; 82728-TC; 83540-TC; 83735-TC; 83880; 84100-TC; 84155-TC; 84300-TC; 84439-TC; 84443-TC; 84484-TC; 85025-TC; 87081-TC; 93970-TC; 94799-TC; 97112-TC; 97530-TC; A6253; A6403; C9803; G0378; J0696; J1644; J3370; J3420; J3490; J7030; J7050; J7060

== ENCOUNTER 2024-05-29 13:47 | Inpatient (IN) | payer MEDICARE, OTHER ==
[~2024-05-29] VITALS: Ht 180.3 cm; Wt 100.9 kg
[~2024-05-29 13:47] MED LIST: ACET650S11 RC; ALBU18HF2 IH; AMLO-212 PO; ASPI-1169 PO; ATOR10TA PO; ATRO2DRO4 SL; BENA40TA8 PO; BISA10SU11 RC; BUDE10.2 IH; BUME2TAB7 PO; CALC500T52 PO; CEPH500C2 MT; CHOL100043 PO; DOCU-141 PO; FERR325T23 PO; FURO-144 PO; GABA-532 PO; IPRA3AMP23 IH; LEVE500T20 PO; LORA2ORA5 SL; MELA5TAB PO; METO5TAB7 PO; MORP100S3 SL; OMEP20CA15 PO; ONDA4TAB11 SL; POTA8TAB3 PO; PRED20TA PO; QUET25TA PO; ZOLP5TAB8 PO
[2024-05-29] MEDS: IV NS 0.9% 500 ML BAG IV ONE (14:39)
[2024-05-29] MEDS: MORPHINE SULFATE INJ 2 MG/ML DISP.SYRIN IV ONE (14:40)
[2024-05-29] MEDS: ONDANSETRON HCL/PF 4 MG/2 ML VIAL IVP ONE (14:40)
[2024-05-29] MEDS: KETOROLAC TROMETHAMINE 15 MG/ML VIAL IV ONE (14:40)
[2024-05-29] MEDS ORDERED: KETOROLAC TROMETHAMINE 15 MG/ML VIAL ONE (14:43)
[2024-05-29] MEDS ORDERED: ONDANSETRON HCL/PF 4 MG/2 ML VIAL ONE (14:43)
[2024-05-29] MEDS ORDERED: MORPHINE SULFATE INJ 4 MG/ML DISP.SYRIN ONE (14:44)
[2024-05-29 14:50] LABS: BASOPHILS % (AUTO) 0.3 % (0.0-2.0); EOSINOPHILS # (AUTO) 0.1 K/uL (0.0-0.7); EOSINOPHILS % (AUTO) 0.8 % (0.0-6.0); HEMATOCRIT 32 % (39-51); HEMOGLOBIN 10.6 g/dL (13.5-17.5); LYMPHOCYTES # (AUTO) 0.5 K/uL (0.8-4.8); LYMPHOCYTES % (AUTO) 4.4 % (20.0-44.0); MEAN CORPUSCULAR HEMOGLOBIN 27 PG (26.0-33.0); MEAN CORPUSCULAR HGB CONC 33 g/dl (31.0-36.0); MEAN CORPUSCULAR VOLUME 81 fL (80-96); MONOCYTES % (AUTO) 8.8 % (2.0-12.0); NEUTROPHILS # (AUTO) 9.4 K/uL (1.8-8.9); NEUTROPHILS % (AUTO) 85.7 % (43.0-81.0); PLATELET COUNT (AUTO) 394 K/uL (150-450); RED CELL DISTRIBUTION WIDTH 15.7 % (11.5-15.0)
[2024-05-29 15:00] LABS: CALCIUM, SERUM 9.6 mg/dL (8.5-10.1); CREATININE 1.7 mg/dL (0.6-1.3); POTASSIUM 3.1 mmol/L (3.5-5.1)
[2024-05-29] MEDS: IV NS 0.9% 1,000 ML BAG IV ONE (15:30)
[2024-05-29] MEDS ORDERED: HYDR-500 PO (15:59)
[2024-05-29] MEDS ORDERED: DIPH25TA23 PO (15:59)
[2024-05-29] MEDS ORDERED: SENN-175 PO (15:59)
[2024-05-29] MEDS ORDERED: PRED5TAB PO (15:59)
[2024-05-29] MEDS ORDERED: METF-442 PO (15:59)
[2024-05-29] MEDS ORDERED: INSU100V27 SQ (15:59)
[2024-05-29] MEDS ORDERED: FLUT1BLS IH (15:59)
[2024-05-29] MEDS ORDERED: TRAM50TA2 PO (15:59)
[2024-05-29] MEDS ORDERED: MAGN400O6 PO (15:59)
[2024-05-29] MEDS ORDERED: DOCU250C14 PO (15:59)
[2024-05-29] MEDS ORDERED: APIX2.5T PO (15:59)
[2024-05-29] MEDS ORDERED: LINA5TAB PO (15:59)
[2024-05-29] MEDS ORDERED: GABA800T11 PO (15:59)
[2024-05-29] MEDS ORDERED: PREG-59 PO (15:59)
[2024-05-29] MEDS ORDERED: POTA20TA83 PO (15:59)
[2024-05-29] MEDS ORDERED: IBUP-1955 PO (15:59)
[2024-05-29 16:00] VITALS: BP 102/72; TEMP 98.4; O2SAT 96
[2024-05-29 16:29] VITALS: O2SAT 100
[2024-05-29] MEDS ORDERED: ONDANSETRON HCL/PF 4 MG/2 ML VIAL IVP PRN (17:00)
[2024-05-29] MEDS ORDERED: Z GUARD REMEDY 4 OZ OINT TP SCH (17:00)
[2024-05-29] MEDS ORDERED: TRAMADOL HCL 50 MG TABLET PO PRN (17:00)
[2024-05-29] MEDS ORDERED: ACETAMINOPHEN 325 MG TABLET PO PRN (17:00)
[2024-05-29] MEDS ORDERED: DOCUSATE SODIUM 250 MG CAPSULE PO PRN (17:00)
[2024-05-29] MEDS ORDERED: SENNOSIDES 8.6 MG TABLET PO PRN (17:00)
[2024-05-29] MEDS ORDERED: BISACODYL SUPP (10 MG) 10 MG/SUPP.RECT SUPP.RECT RC PRN (17:00)
[2024-05-29] MEDS ORDERED: HYDROCODONE/APAP 5/325MG TABLET PO PRN (17:00)
[2024-05-29] MEDS ORDERED: DEXTROSE 50%-WATER 50 ML DISP.SYRIN IV PRN (17:30)
[2024-05-29] MEDS: POTASSIUM CHLORIDE 20 MEQ TAB.PRT.SR PO ONE (19:09)
[2024-05-29] MEDS: PREGABALIN 100 MG CAPSULE PO SCH (19:09)
[2024-05-29] MEDS: DOCUSATE SODIUM 100 MG CAPSULE PO SCH (19:09)
[2024-05-29] MEDS: CLOTRIMAZOLE 1% 15 GM TUBE TP SCH (19:10)
[2024-05-29] MEDS: IV NS 0.9% 1,000 ML IV PRN (19:20)
[2024-05-29 20:00] VITALS: BP_SYST 54; BP_SYST 90; BP_DIAS 54; BP_DIAS 93; TEMP 97.5; O2SAT 90; O2SAT 93
[2024-05-29] MEDS: BLOOD SUGAR DIAGNOSTIC 1 EACH STRIP VI SCH (20:34)
[2024-05-29] MEDS: INSULIN REGULAR, HUMAN 100 UNIT/ML 3 ML VIAL SQ PRN (20:35)
[2024-05-29] MEDS: ATORVASTATIN 10 MG TABLET PO SCH (21:40)
[2024-05-29] MEDS: *INSULIN REGULAR(HUMULIN R)HUM 100 UNIT/ML VIAL SQ PRN (22:01)
[2024-05-29] MEDS: ZOLPIDEM TARTRATE 5 MG TABLET PO PRN (23:27)
[2024-05-30 06:05] LABS: BASOPHILS % (AUTO) 0.7 % (0.0-2.0); EOSINOPHILS # (AUTO) 0.4 K/uL (0.0-0.7); HEMATOCRIT 28 % (39-51); HEMOGLOBIN 9.1 g/dL (13.5-17.5); LYMPHOCYTES # (AUTO) 0.7 K/uL (0.8-4.8); LYMPHOCYTES % (AUTO) 12.4 % (20.0-44.0); MEAN CORPUSCULAR HEMOGLOBIN 26 PG (26.0-33.0); MEAN CORPUSCULAR HGB CONC 33 g/dl (31.0-36.0); MEAN CORPUSCULAR VOLUME 81 fL (80-96); MONOCYTES # (AUTO) 0.6 K/uL (0.1-1.30); MONOCYTES % (AUTO) 9.7 % (2.0-12.0); NEUTROPHILS # (AUTO) 4.2 K/uL (1.8-8.9); NEUTROPHILS % (AUTO) 71.2 % (43.0-81.0); PLATELET COUNT (AUTO) 307 K/uL (150-450); RED BLOOD CELL COUNT(AUTO) 3.44 MIL/uL (4.5-6.0); RED CELL DISTRIBUTION WIDTH 15.6 % (11.5-15.0); RETICULOCYTE COUNT 0.9 % (0.6-2.5); WHITE BLOOD COUNT (AUTO) 5.9 K/uL (4.3-11.0)
[2024-05-30 06:41] LABS: ALBUMIN 2.2 g/dL (3.4-5.0); BILIRUBIN,TOTAL 0.5 mg/dL (0.2-1.0); CALCIUM, SERUM 9.1 mg/dL (8.5-10.1); CREATININE 1.7 mg/dL (0.6-1.3)
[2024-05-30 06:50] LABS: POTASSIUM 2.7 mmol/L (3.5-5.1)
[2024-05-30 07:51] LABS: THYROID STIMULATING HORMONE 0.85 uIU/mL (0.358-3.74)
[2024-05-30 08:00] VITALS: BP 113/68; TEMP 98.4; O2SAT 98
[2024-05-30] MEDS: PANTOPRAZOLE 40 MG TABLET.DR PO SCH (08:13)
[2024-05-30] MEDS: MAGNESIUM HYDROXIDE 30 ML UDC PO SCH (08:14)
[2024-05-30] MEDS: predniSONE 5 MG TABLET PO SCH (08:14)
[2024-05-30] MEDS: LINAGLIPTIN 5 MG TABLET PO SCH (08:15)
[2024-05-30] MEDS: APIXABAN 2.5 MG TABLET PO SCH (08:16)
[2024-05-30] MEDS: FLUTICASONE/VILANTEROL 1 EACH BLST.W.DEV IH SCH (08:27)
[2024-05-30] MEDS ORDERED: POTASSIUM CHLORIDE 10 MEQ/50 ML PREMIXED IVPB FOR PERIPHERAL LINE IV ONE (11:30)
[2024-05-30] MEDS: POTASSIUM CL. PREMIX PERIPHER. 50 ML IV SCH (11:36)
[2024-05-30] MEDS: POTASSIUM CHLORIDE 20 MEQ TAB.PRT.SR PO ONE (11:36)
[2024-05-30] MEDS: VITAMINS A AND D 56.7 GM TUBE TP SCH (11:59)
[2024-05-30] MEDS: CYANOCOBALAMIN 1,000 MCG/ML VIAL IM SCH (14:45)
[2024-05-30 16:00] VITALS: BP 126/91; TEMP 98.2; O2SAT 98
[2024-05-30] MEDS: CLOTRIMAZOLE/BETAMETASONE DIPROPIONATE 15 GM TUBE TP SCH (16:25)
[2024-05-30 20:39] VITALS: BP 110/68; TEMP 98.1; O2SAT 94
[2024-05-31 06:50] LABS: BASOPHILS # (AUTO) 0.1 K/uL (0.0-0.2); BASOPHILS % (AUTO) 0.8 % (0.0-2.0); EOSINOPHILS # (AUTO) 0.4 K/uL (0.0-0.7); EOSINOPHILS % (AUTO) 6.1 % (0.0-6.0); HEMATOCRIT 31 % (39-51); HEMOGLOBIN 10.2 g/dL (13.5-17.5); LYMPHOCYTES # (AUTO) 0.5 K/uL (0.8-4.8); LYMPHOCYTES % (AUTO) 7.7 % (20.0-44.0); MEAN CORPUSCULAR HEMOGLOBIN 27 PG (26.0-33.0); MEAN CORPUSCULAR HGB CONC 33 g/dl (31.0-36.0); MEAN CORPUSCULAR VOLUME 81 fL (80-96); MONOCYTES # (AUTO) 0.7 K/uL (0.1-1.30); MONOCYTES % (AUTO) 9.6 % (2.0-12.0); NEUTROPHILS # (AUTO) 5.1 K/uL (1.8-8.9); NEUTROPHILS % (AUTO) 75.8 % (43.0-81.0); PLATELET COUNT (AUTO) 394 K/uL (150-450); WHITE BLOOD COUNT (AUTO) 6.8 K/uL (4.3-11.0)
[2024-05-31 07:46] LABS: CALCIUM, SERUM 9.5 mg/dL (8.5-10.1); CREATININE 1.2 mg/dL (0.6-1.3); MAGNESIUM 2.3 mg/dL (1.8-2.4); POTASSIUM 3.1 mmol/L (3.5-5.1)
[2024-05-31 08:00] VITALS: BP 134/81; TEMP 98.4; O2SAT 97
[2024-05-31] MEDS: POTASSIUM CHLORIDE 20 MEQ TAB.PRT.SR PO SCH ×2 (09:07→10:12)
[2024-05-31] MEDS: IV NS 0.9% 1,000 ML IV SCH (10:43)
[2024-05-31 12:00] VITALS: BP 140/88; TEMP 98.4; O2SAT 97
[2024-05-31 12:26] LABS: OCCULT BLOOD STOOL NEGATIVE (NEGATIVE)
[2024-05-31 16:00] VITALS: BP 140/88; TEMP 98.4; O2SAT 97
[2024-05-31] MEDS: MORPHINE SULFATE INJ 2 MG/ML DISP.SYRIN IV PRN (18:02)
[2024-05-31 18:44] VITALS: BP 140/88; TEMP 98.4
[2024-05-31 20:46] VITALS: BP 127/84; TEMP 98.1; O2SAT 98
[2024-06-01 06:34] LABS: BASOPHILS % (AUTO) 0.6 % (0.0-2.0); EOSINOPHILS # (AUTO) 0.4 K/uL (0.0-0.7); EOSINOPHILS % (AUTO) 5.8 % (0.0-6.0); HEMATOCRIT 33 % (39-51); HEMOGLOBIN 10.6 g/dL (13.5-17.5); LYMPHOCYTES # (AUTO) 0.8 K/uL (0.8-4.8); LYMPHOCYTES % (AUTO) 10.5 % (20.0-44.0); MEAN CORPUSCULAR HEMOGLOBIN 27 PG (26.0-33.0); MEAN CORPUSCULAR HGB CONC 32 g/dl (31.0-36.0); MEAN CORPUSCULAR VOLUME 83 fL (80-96); MONOCYTES # (AUTO) 0.8 K/uL (0.1-1.30); MONOCYTES % (AUTO) 10.7 % (2.0-12.0); NEUTROPHILS # (AUTO) 5.4 K/uL (1.8-8.9); NEUTROPHILS % (AUTO) 72.4 % (43.0-81.0); PLATELET COUNT (AUTO) 412 K/uL (150-450); RED BLOOD CELL COUNT(AUTO) 3.95 MIL/uL (4.5-6.0); WHITE BLOOD COUNT (AUTO) 7.5 K/uL (4.3-11.0)
[2024-06-01 06:58] LABS: CALCIUM, SERUM 9.3 mg/dL (8.5-10.1); CREATININE 0.9 mg/dL (0.6-1.3); POTASSIUM 3.3 mmol/L (3.5-5.1)
[2024-06-01 08:00] VITALS: BP 151/72; TEMP 98.4; O2SAT 94
[2024-06-01 16:00] VITALS: BP 118/70; TEMP 98.8; O2SAT 94
[2024-06-01 20:52] VITALS: BP 120/66; TEMP 98.6; O2SAT 98
[2024-06-02 06:31] LABS: BASOPHILS # (AUTO) 0.1 K/uL (0.0-0.2); BASOPHILS % (AUTO) 0.7 % (0.0-2.0); EOSINOPHILS # (AUTO) 0.4 K/uL (0.0-0.7); EOSINOPHILS % (AUTO) 4.8 % (0.0-6.0); HEMATOCRIT 32 % (39-51); HEMOGLOBIN 10.4 g/dL (13.5-17.5); LYMPHOCYTES # (AUTO) 0.8 K/uL (0.8-4.8); LYMPHOCYTES % (AUTO) 10.4 % (20.0-44.0); MEAN CORPUSCULAR HEMOGLOBIN 27 PG (26.0-33.0); MEAN CORPUSCULAR HGB CONC 33 g/dl (31.0-36.0); MEAN CORPUSCULAR VOLUME 81 fL (80-96); MONOCYTES # (AUTO) 0.7 K/uL (0.1-1.30); MONOCYTES % (AUTO) 10.1 % (2.0-12.0); NEUTROPHILS # (AUTO) 5.5 K/uL (1.8-8.9); PLATELET COUNT (AUTO) 460 K/uL (150-450); RED BLOOD CELL COUNT(AUTO) 3.91 MIL/uL (4.5-6.0); RED CELL DISTRIBUTION WIDTH 16.2 % (11.5-15.0); WHITE BLOOD COUNT (AUTO) 7.4 K/uL (4.3-11.0)
[2024-06-02 06:57] LABS: CALCIUM, SERUM 8.9 mg/dL (8.5-10.1); POTASSIUM 3.3 mmol/L (3.5-5.1)
[2024-06-02 07:30] VITALS: BP 127/81; TEMP 98; O2SAT 96
[2024-06-02] MEDS: FERROUS SULFATE (325 MG) 325 MG/TAB TABLET PO SCH (08:14)
[2024-06-02] MEDS: POTASSIUM CHLORIDE 20 MEQ TAB.PRT.SR PO ONE (08:57)
[2024-06-02 10:59] VITALS: BP 127/81; TEMP 98.4; O2SAT 96
== END 2024-06-02 13:15 | DRG 683 ==
LOC: ER 13:50 → MED 16:04
PROVIDERS: ADMIT Internal Medicine; ATTEND Internal Medicine
DX: N17.9 Acute kidney failure, unspecified (principal); I13.0 Hypertensive heart and chronic kidney disease with heart failure and stage 1 through stage 4 chronic kidney disease, or unspecified chronic kidney disease; I69.354 Hemiplegia and hemiparesis following cerebral infarction affecting left non-dominant side; E86.0 Dehydration; N18.30 Chronic kidney disease, stage 3 unspecified; J44.89 Other specified chronic obstructive pulmonary disease; E87.6 Hypokalemia; B35.6 Tinea cruris; E11.22 Type 2 diabetes mellitus with diabetic chronic kidney disease; E66.9 Obesity, unspecified; G89.4 Chronic pain syndrome; M16.0 Bilateral primary osteoarthritis of hip; M17.0 Bilateral primary osteoarthritis of knee; R62.7 Adult failure to thrive; I25.10 Atherosclerotic heart disease of native coronary artery without angina pectoris; I50.9 Heart failure, unspecified; E78.5 Hyperlipidemia, unspecified; D63.1 Anemia in chronic kidney disease; D50.9 Iron deficiency anemia, unspecified; E11.40 Type 2 diabetes mellitus with diabetic neuropathy, unspecified; E53.8 Deficiency of other specified B group vitamins; Z86.718 Personal history of other venous thrombosis and embolism; G40.909 Epilepsy, unspecified, not intractable, without status epilepticus; F41.9 Anxiety disorder, unspecified; G47.30 Sleep apnea, unspecified; Z79.82 Long term (current) use of aspirin; Z79.84 Long term (current) use of oral hypoglycemic drugs; Z99.81 Dependence on supplemental oxygen; R21 Rash and other nonspecific skin eruption; R23.4 Changes in skin texture; Z68.31 Body mass index [BMI] 31.0-31.9, adult; Z79.52 Long term (current) use of systemic steroids; M25.462 Effusion, left knee; N18.32 Chronic kidney disease, stage 3b
CPT/HCPCS: 36415; 71045-TC; 72020-TC; 72170-TC; 73564-TC; 80048-TC; 80053-TC; 80061-TC; 82272-TC; 82607-TC; 82962-TC; 83540-TC; 83735-TC; 83880; 84443-TC; 85025-TC; 85045-TC; 92526; 92611-TC; 93971-TC; 97110-TC; 97530-TC; A4223; G0378; J1815; J1885; J2270; J2405; J3420; J3480; J7030; J7512

== ENCOUNTER 2025-02-15 15:21 | Emergency (ER) | payer MEDICARE, OTHER ==
[~2025-02-15] VITALS: Ht 170.2 cm; Wt 70.3 kg
[~2025-02-15 15:21] MED LIST changes: -ACET650S11 RC; -ALBU18HF2 IH; -AMLO-212 PO; +APIX2.5T PO; -ASPI-1169 PO; -ATRO2DRO4 SL; -BENA40TA8 PO; -BUDE10.2 IH; -CALC500T52 PO; -CHOL100043 PO; +DIPH25TA23 PO; -DOCU-141 PO; +DOCU250C14 PO; -FERR325T23 PO; +FLUT1BLS IH; -FURO-144 PO; -GABA-532 PO; +GABA800T11 PO; +HYDR-500 PO; +IBUP-1955 PO; +INSU100V27 SQ; -IPRA3AMP23 IH; +LINA5TAB PO; -LORA2ORA5 SL; +MAGN400O6 PO; -MELA5TAB PO; +METF-442 PO; -MORP100S3 SL; -OMEP20CA15 PO; +POTA20TA83 PO; -POTA8TAB3 PO; -PRED20TA PO; +PRED5TAB PO; +PREG-59 PO; -QUET25TA PO; +SENN-175 PO; +TRAM50TA2 PO
[2025-02-15] MEDS ORDERED: ONDANSETRON HCL/PF 4 MG/2 ML VIAL ONE (16:30)
[2025-02-15] MEDS: ONDANSETRON HCL/PF 4 MG/2 ML VIAL IVP ONE (16:30)
[2025-02-15] MEDS: IV NS 0.9% 1,000 ML BAG IV ONE (16:30)
[2025-02-15] MEDS: MORPHINE SULFATE INJ 2 MG/ML DISP.SYRIN IV ONE (16:30)
[2025-02-15] MEDS ORDERED: MORPHINE SULFATE INJ 4 MG/ML DISP.SYRIN ONE (16:31)
[2025-02-15 16:49] LABS: BASOPHILS % (AUTO) 0.2 % (0.0-2.0); EOSINOPHILS # (AUTO) 0.1 K/uL (0.0-0.7); EOSINOPHILS % (AUTO) 1.5 % (0.0-6.0); HEMATOCRIT 34 % (39-51); HEMOGLOBIN 11.5 g/dL (13.5-17.5); LYMPHOCYTES # (AUTO) 0.4 K/uL (0.8-4.8); LYMPHOCYTES % (AUTO) 5.2 % (20.0-44.0); MEAN CORPUSCULAR HEMOGLOBIN 28 PG (26.0-33.0); MEAN CORPUSCULAR HGB CONC 34 g/dl (31.0-36.0); MEAN CORPUSCULAR VOLUME 82 fL (80-96); MONOCYTES # (AUTO) 0.8 K/uL (0.1-1.30); NEUTROPHILS # (AUTO) 6.8 K/uL (1.8-8.9); NEUTROPHILS % (AUTO) 83.1 % (43.0-81.0); PLATELET COUNT (AUTO) 204 K/uL (150-450); RED BLOOD CELL COUNT(AUTO) 4.13 MIL/uL (4.5-6.0); WHITE BLOOD COUNT (AUTO) 8.2 K/uL (4.3-11.0)
[2025-02-15 16:58] LABS: CALCIUM, SERUM 9.4 mg/dL (8.5-10.1); CARBON DIOXIDE 30 mmol/L (21-32); CHLORIDE 99 mmol/L (98-107); CREATININE 1.3 mg/dL (0.6-1.3); GLUCOSE 162 mg/dL (74-106); POTASSIUM 3.5 mmol/L (3.5-5.1); SODIUM SERUM 136 mmol/L (136-145); UREA NITROGEN, BLOOD 38 mg/dL (7-18)
[2025-02-15 17:03] LABS: INR 1.07 (0.91-1.10); PARTIAL THROMBOPLASTIN TIME 39.5 SEC (24.3-34.3); PROTHROMBIN TIME 11.3 SECS (9.2-11.1)
[2025-02-15 17:04] LABS: ALANINE AMINOTRANSFERASE 12 U/L (12-78); ALBUMIN 2.9 g/dL (3.4-5.0); ALKALINE PHOSPHATASE 72 U/L (46-116); ASPARTATE AMINOTRANSFERASE 18 U/L (15-37); BILIRUBIN,DIRECT 0.2 mg/dL (0.0-0.2); BILIRUBIN,TOTAL 0.6 mg/dL (0.2-1.0); LIPASE 21 U/L (16-77); TOTAL PROTEIN, SERUM 7.7 g/dL (6.4-8.2)
[2025-02-15 17:13] LABS: LACTIC ACID 1.1 mmol/L (0.4-2.0)
[2025-02-15] MEDS ORDERED: CELE200C PO (17:26)
[2025-02-15] MEDS ORDERED: NEOM1OIN15 TP (17:26)
[2025-02-15] MEDS ORDERED: ATOR20TA PO (17:26)
[2025-02-15] MEDS ORDERED: BUME1TAB8 PO (17:26)
[2025-02-15] MEDS ORDERED: FERR-68 PO (17:26)
[2025-02-15] MEDS ORDERED: POTA-88 PO (17:26)
[2025-02-15] MEDS ORDERED: DOCU100C36 PO (17:26)
[2025-02-15] MEDS ORDERED: PANT40TA2 PO (17:26)
[2025-02-15] MEDS ORDERED: TRIA5PAS5 TP (17:26)
[2025-02-15 19:17] VITALS: BP 110/89; TEMP 98.9; O2SAT 99
== END 2025-02-15 19:18 ==
LOC: ER 15:24
DX: R19.7 Diarrhea, unspecified (principal); E86.0 Dehydration; M79.601 Pain in right arm; M79.641 Pain in right hand; R07.9 Chest pain, unspecified; R10.9 Unspecified abdominal pain; I13.0 Hypertensive heart and chronic kidney disease with heart failure and stage 1 through stage 4 chronic kidney disease, or unspecified chronic kidney disease; I50.9 Heart failure, unspecified; E11.22 Type 2 diabetes mellitus with diabetic chronic kidney disease; N18.9 Chronic kidney disease, unspecified; G89.29 Other chronic pain; J44.9 Chronic obstructive pulmonary disease, unspecified; Z79.01 Long term (current) use of anticoagulants; Z79.1 Long term (current) use of non-steroidal anti-inflammatories (NSAID); Z79.51 Long term (current) use of inhaled steroids; Z79.52 Long term (current) use of systemic steroids; Z79.84 Long term (current) use of oral hypoglycemic drugs; Z79.899 Other long term (current) drug therapy; Z86.69 Personal history of other diseases of the nervous system and sense organs
CPT/HCPCS: 99285; 74176; 96374; 71045; 96361; 96375; 93005; 85025; 80048; 83605; 83690; 80076; 36415; 84484; 85730; 87081; 87040 ×2; J2270; J2405; J7030; A4223